=== PATIENT | female | born 1985 | race Caucasian/White ===

== ENCOUNTER → 2016-07-16 | Outpatient (CLI) | payer MEDICAID | END | disposition short-term general hospital (02) | LOC: CLPAIN 12:11 | DX: G43.909 Migraine, unspecified, not intractable, without status migrainosus (principal) ==

== ENCOUNTER → 2016-09-03 | Outpatient (CLI) | payer MEDICAID | END | disposition short-term general hospital (02) | LOC: CLPAIN 11:18 | DX: M54.12 Radiculopathy, cervical region (principal); G56.01 Carpal tunnel syndrome, right upper limb ==

== ENCOUNTER → 2016-10-12 | Outpatient (CLI) | payer MEDICAID | END | disposition short-term general hospital (02) | LOC: CLPHYS 10:37 | DX: M54.12 Radiculopathy, cervical region (principal); G56.01 Carpal tunnel syndrome, right upper limb ==